=== PATIENT | male | born 1990 | race Caucasian/White ===

== ENCOUNTER 2017-10-13 23:01 | Emergency (ER) | payer SELFPAY ==
[~2017-10-13] VITALS: Ht 167.6 cm; Wt 94.8 kg
[2017-10-13 23:08] VITALS: Ht 167.6 cm; Wt 94.8 kg
[2017-10-14 02:42] VITALS: BP 106/65
== END 2017-10-14 02:42 | disposition home or self-care (01) ==
LOC: ED 23:01
DX: J45.909 Unspecified asthma, uncomplicated (principal)
CPT/HCPCS: J1885; J7512; J7613; J7644; Q0092